=== PATIENT | male | born 1985 | race Caucasian/White ===

== ENCOUNTER → 2017-07-20 | Day surgery (SDC) | payer SELFPAY ==
[~2017-07-20] VITALS: Ht 177.8 cm; Wt 79.5 kg
[~2017-07-20] MED LIST: *morphine SULFATE 10 MG/ML PERIprocedure ONLY ONE; ACETAMINOPHEN 1000 MG/100 ML 100 ML IV ONE; ACETAMINOPHEN/HYDROcodone 325 MG/5 MG TAB PO PRN; CHLORHEXIDINE GLUCONATE 2 % 1 PACK (2 CLOTHS) TOPICAL PRN; DEXAMETHASONE SOD PHOS 4 MG/ML VIAL IV ONE; DO NOT ADM ANY ANTICOAGULANT DRUGS PRN; FAMOTIDINE 20 MG/2 ML VIAL ONE; GENTAMICIN SULFATE 80 MG/2 ML VIAL ONE; HYDR-3516 PO; LACTATED RINGER'S 1000 ML INJ 1,000 ML IV ONE; LACTATED RINGER'S 1000 ML INJ 1,000 ML IV SCH; LACTATED RINGER'S 1000 ML IV PRN; LIDOCAINE HCL 1% PF 5 ML SYRINGE OTHER ONE; METOPROLOL TARTRATE 25 MG TAB PO PRN; MIDAZOLAM HCL 2 MG/2 ML VIAL ONE; MORPHINE SULFATE 4 MG/ML INJ IV PUSH PRN; ONDANSETRON HCL 4 MG/2 ML VIAL IV ONE; ONDANSETRON HCL 4 MG/2 ML VIAL IV PUSH PRN; POVIDONE IODINE 5% (ANTISEPSIS KIT) 4 APPLICATIONS EACH NARE PRN; POVIDONE IODINE 7.5% SCRUB 118 ML BOTTLE TOPICAL SCH; PROPOFOL 200 MG/20 ML AMP IV ONE; ROPIVACAINE 0.5% PF INJ 30 ML VIAL ONE; SODIUM CHLORID 0.9% 500 ML IV PRN; SODIUM CHLORIDE FLUSH BID IV FLUSH SCH; SODIUM CHLORIDE FLUSH PRN IV FLUSH; VANCOMYCIN 1500 MG/NS 500 ML (for 85-99 kg) IV SCH; ceFAZolin 2 GM PREMIX 50 ML IV SCH; ePHEDrine/NS 25 MG/5 ML SYRINGE IV ONE
[2017-07-20 09:39] LABS: AUTOMATED NEUTROPHIL # 5.1 TH/MM3 (1.8-7.7); BASOPHIL % 0.4 % (0.0-2.0); EOSINOPHIL # 0.2 TH/MM3 (0-0.4); EOSINOPHIL % 3.4 % (0.0-4.0); HEMATOCRIT 41.1 % (39.0-51.0); HEMOGLOBIN 14.5 GM/DL (13.0-17.0); LYMPH % 17.5 % (9.0-44.0); LYMPHOCYTE # 1.3 TH/MM3 (1.0-4.8); MEAN CELL VOLUME 88.4 FL (80.0-100.0); MEAN CORPUSCULAR HEMOGLOBIN 31.2 PG (27.0-34.0); MEAN CORPUSCULAR HGB CONC 35.3 % (32.0-36.0); MEAN PLATELET VOLUME 8.5 FL (7.0-11.0); MONO % 8.3 % (0.0-8.0); MONOCYTE # 0.6 TH/MM3 (0-0.9); NEUT % 70.4 % (16.0-70.0); PLATELET COUNT 202 TH/MM3 (150-450); RED BLOOD COUNT 4.65 MIL/MM3 (4.50-5.90); RED CELL DISTRIBUTION WIDTH 12.5 % (11.6-17.2); WHITE BLOOD COUNT 7.2 TH/MM3 (4.0-11.0)
[2017-07-20 09:53] LABS: BICARBONATE 29.1 MEQ/L (21.0-32.0); CALCIUM 9.3 MG/DL (8.5-10.1); CREATININE 0.96 MG/DL (0.60-1.30)
[2017-07-20 13:30] VITALS: BP 120/78; PULSE 68; RESP 20; TEMP 96.8; O2SAT 98
--- NOTE | 2017-07-20 14:54 | RADRPT ---
EXAM DATE/TIME: 07/20/2017 10:55 [place] COMPARISON: No previous studies available for comparison. INDICATIONS : ORIF left ankle, fracture. MEDICAL HISTORY : None. SURGICAL HISTORY : None. ENCOUNTER: Initial ACUITY: 1 day PAIN SCORE: Non-responsive. LOCATION: Left ankle FINDINGS: 4 magnified C-arm spot views are centered over the ankle joint and labeled left. Initial image is lab eled "stressed" and shows medial displacement of the tibia relative to the talar dome. There is a fra cture through the distal fibular metaphysis which is obliquely oriented. The subsequent images show a n anchoring plate along the lateral fibular cortex with anchoring screws. An anchoring wire is seen t raversing the tibial metaphysis distally. Good alignment noted. CONCLUSION: Intraoperative images as detailed above. Raf Hays Jr., MD on July 20, 2017 at 14:17 Board Certified Radiologist. This report was verified electronically.
--- NOTE | 2017-07-23 09:20 | MP ---
cc: SONAL JOHNSTON DATE OF SURGERY 07/20/2017 PREOPERATIVE DIAGNOSIS 1. Displaced fracture lateral malleolus, left ankle. 2. Ruptured deltoid ligament. 3. Ruptured distal tibiofibular syndesmosis. POSTOPERATIVE DIAGNOSIS 1. Displaced fracture lateral malleolus, left ankle. 2. Ruptured deltoid ligament. 3. Ruptured distal tibiofibular syndesmosis. OPERATIVE PROCEDURE 1. Examination left ankle under anesthesia. 2. Open reduction, internal fixation of fracture lateral malleolus. 3. Open reduction, internal fixation of distal tibiofibular syndesmosis. SURGEON Dr. Johnston. ANESTHESIA General. TECHNIQUE After induction of general anesthesia and nerve block, the left lower extremity was thoroughly prepped with alcohol and ChloraPrep and draped in routine fashion. Fluoroscopic imaging was carried out. A gentle stress view done in abduction and external rotation of the left ankle shows wide separation of the medial joint space and also separation of the distal tibiofibular syndesmosis. After application of an Esmarch bandage, the tourniquet was inflated to 300 mmHg. An Ioban drape was applied. A lateral incision was made over the subcutaneous border of the distal fibula and deepened through subcutaneous tissue. The fracture site was delineated. The distal fragment was externally rotated and displaced posteriorly. It was not a gross displacement but enough to cause problems. The fracture was now reduced doing routine maneuvers and then fixated with two smooth pins keeping an anatomical reduction. A lateral Synthes fibular plate was contoured slightly to coapt the bone and then fixed to the proximal and distal fragments with distal locking screws and proximal non-locking screws. Fluoroscopic imaging was carried out and then the ankle was stressed. There was minimal opening of the medial joint space, probably not more than normal. Since he did have displaced disruption of the syndesmosis it was decided to use a Arthrex TightRope. Following the routine technique the TightRope was deployed and tightened and a couple of knots tied for security. This was done while the itinerant teacher assistant compressed the tibia and fibular together. The wound was irrigated with saline solution. The tourniquet was released. Hemostasis was obtained with cautery. There was some bleeding from the distal vein while we were doing the TightRope because we let the tourniquet down before that, but we controlled it with that clamping and cauterization. The wound was then closed in a single layer of skin and subcutaneous tissue with interrupted vertical mattress 3-0 nylon sutures. Dressing was applied with Xeroform, 4x4s, Sof-Rol and ABD. A posterior fiberglass splint was applied and secured with Fabiana and Solo bandage. The patient tolerated the procedure well. TRANSFUSIONS AND COMPLICATIONS None. POSTOPERATIVE CONDITION Satisfactory. PROGNOSIS Good. ESTIMATED BLOOD LOSS 50 mL. MD DAVID Shaver/MERLE /12:22 PM /9:09 AM
== END | disposition home or self-care (01) ==
LOC: HSDC 08:07
PROVIDERS: ATTEND Orthopaedic Surgery
DX: S82.62XA Displaced fracture of lateral malleolus of left fibula, initial encounter for closed fracture (principal); S93.432A Sprain of tibiofibular ligament of left ankle, initial encounter; X50.1XXA Overexertion from prolonged static or awkward postures, initial encounter; Y93.66 Activity, soccer; Y92.019 Unspecified place in single-family (private) house as the place of occurrence of the external cause; Z01.818 Encounter for other preprocedural examination
CPT/HCPCS: 01480; 27792; 27829; 73610; 76000; 80048; 85025; 85610; 85730; C1713; J0131; J0690; J1100; J2250; J2270; J2405; J2795; J3010; J3370; J7040; J7120; J1580